=== PATIENT | male | born 1985 | race Two or more races ===

== ENCOUNTER 2023-10-08 20:47 | Inpatient (IN) | payer OTHER ==
[~2023-10-08] VITALS: Ht 177.8 cm; Wt 90.0 kg
[2023-10-08] MEDS: metroNIDAZOLE 500MG/100ML 100 ML IV ONE (01:00)
[2023-10-08 21:32] LABS: Basophils # (auto) 0.1 10 ^3/uL (0-0.2); Basophils % (auto) 0.2 % (0.0-2.0); Eosinophils # (auto) 0 10 ^3/uL (0-0.8); Eosinophils % (auto) 0.1 % (0.0-7.0); Hematocrit 50.3 % (41.0-53.0); Hemoglobin 17.6 g/dL (13.5-17.5); Lymphocytes # (auto) 1.2 10 ^3/uL (0.4-5.4); Lymphocytes % (auto) 5.4 % (10.0-50.0); Mean Corpuscular Hemoglobin 30.5 pg (28.0-32.0); Mean Corpuscular Volume 87.2 fL (80.0-100.0); Monocytes # (auto) 1.5 10 ^3/uL (0-1.3); Monocytes % (auto) 6.8 % (0.0-12.0); Neutrophils # (auto) 19.8 10 ^3/uL (1.6-8.6); Neutrophils % (auto) 87.5 % (37.0-80.0); Nucleated Red Blood Cells % 0.1 %; Red Blood Cells 5.77 10^6/uL (4.5-5.90); Red Cell Distribution Width 12.9 % (11.8-14.3); White Blood Cell 22.6 10^3/uL (4.4-10.8)
[2023-10-08 21:38] LABS: Alanine Aminotransferase 21 U/L (7-40); Albumin 5.3 g/dL (3.2-4.8); Alkaline Phosphatase 71 U/L (46-116); Anion Gap 10 (5-15); Aspartate Aminotransferase 16 U/L (13-40); BUN/Creatinine Ratio 7.6 (10.0-20.0); Bilirubin, Total 0.7 mg/dL (0.2-1.0); Blood Urea Nitrogen 8 mg/dL (9-23); Carbon Dioxide 26 mmol/L (20-30); Chloride 105 mmol/L (98-107); Glucose 116 mg/dL (74-106); Sodium 141 mmol/L (136-145); Total Protein 8.4 g/dL (5.7-8.2)
[2023-10-08 21:49] LABS: Partial Thromboplastin Time 25.9 SEC (24.5-34.5); Prothrombin Time 10.6 sec (9.3-11.8)
[2023-10-08] MEDS: SODIUM CHLORIDE 0.9% 1,000 ML IV ONE (23:45)
[2023-10-09 04:27] LABS: Lactic Acid w/Reflex 2.6 mmol/L (0.4-2.0)
[2023-10-09] MEDS ORDERED: ONDANSETRON HCL 4 MG/2 ML VIAL IV PRN (05:30)
[2023-10-09] MEDS ORDERED: HYDROcodone-ACET 5/325MG TAB PO PRN (05:30)
[2023-10-09] MEDS ORDERED: ACETAMINOPHEN 325 MG TAB PO PRN (05:30)
[2023-10-09] MEDS: cefTRIAXone 1GM/50ML D5W 50 ML IV SCH (06:05)
[2023-10-09] MEDS: SODIUM CHLORIDE 0.9% 1,000 ML IV ONE (06:06)
[2023-10-09] MEDS: metroNIDAZOLE 500MG/100ML 100 ML IV SCH (10:12)
[2023-10-09] MEDS: ALPRAZolam 0.25 MG TAB PO PRN (10:39)
[2023-10-09 11:17] VITALS: BP 141/86; PULSE 67; RESP 17; TEMP 99; O2SAT 99
[2023-10-09 12:00] VITALS: BP 141/86; PULSE 88; RESP 17; TEMP 98.9; O2SAT 98
[2023-10-09] MEDS: CIPROFLOXACIN HCL 500 MG TAB PO ONE (13:07)
[2023-10-09] MEDS ORDERED: LABETALOL HCL 5 MG/ML 4ML SYRINGE IV PRN (13:30)
[2023-10-09 19:11] VITALS: BP 139/90; PULSE 72; RESP 17; TEMP 98.7; O2SAT 98
[2023-10-09 20:00] VITALS: PULSE 61; RESP 18; O2SAT 99
[2023-10-09] MEDS: CIPROFLOXACIN HCL 500 MG TAB PO SCH (20:51)
[2023-10-09 21:14] VITALS: BP 153/102; PULSE 61; RESP 18; TEMP 97.9; O2SAT 99
[2023-10-10 01:25] VITALS: BP 123/82; PULSE 68; RESP 18; TEMP 97.9; O2SAT 97
[2023-10-10 05:13] VITALS: BP 139/89; PULSE 51; RESP 18; TEMP 98.3; O2SAT 97
[2023-10-10 06:25] LABS: Basophils # (auto) 0 10 ^3/uL (0-0.2); Basophils % (auto) 0.2 % (0.0-2.0); Eosinophils # (auto) 0.2 10 ^3/uL (0-0.8); Eosinophils % (auto) 2.1 % (0.0-7.0); Hematocrit 42.3 % (41.0-53.0); Hemoglobin 14.3 g/dL (13.5-17.5); Lymphocytes # (auto) 2.1 10 ^3/uL (0.4-5.4); Lymphocytes % (auto) 28.3 % (10.0-50.0); Mean Corpuscular Hemoglobin 29.6 pg (28.0-32.0); Mean Corpuscular Hgb Conc. 33.9 g/dL (32.0-36.0); Mean Corpuscular Volume 87.3 fL (80.0-100.0); Monocytes # (auto) 0.6 10 ^3/uL (0-1.3); Monocytes % (auto) 8.7 % (0.0-12.0); Neutrophils # (auto) 4.5 10 ^3/uL (1.6-8.6); Neutrophils % (auto) 60.7 % (37.0-80.0); Nucleated Red Blood Cells % 0.1 %; Red Blood Cells 4.84 10^6/uL (4.5-5.90); White Blood Cell 7.4 10^3/uL (4.4-10.8)
[2023-10-10 06:31] LABS: Calcium 9.4 mg/dL (8.7-10.4); Chloride 109 mmol/L (98-107); Potassium 4.2 mmol/L (3.5-5.1); Sodium 142 mmol/L (136-145)
[2023-10-10 06:32] LABS: Anion Gap 8 (5-15); Carbon Dioxide 25 mmol/L (20-30)
[2023-10-10 06:37] LABS: BUN/Creatinine Ratio 11.5 (10.0-20.0); Blood Urea Nitrogen 10 mg/dL (9-23); Glucose 96 mg/dL (74-106)
[2023-10-10 08:30] VITALS: BP 141/88; PULSE 72; RESP 20; TEMP 98.4; O2SAT 95
== END 2023-10-10 11:22 | disposition home or self-care (01) | DRG 392 ==
LOC: ER 20:47 → EDBD 20:47 → OVERFLOW 10-09 05:27 → EAST 10-09 05:27 → TELE-E-ADS 10-09 11:03 → EAST 10-09 17:19
PROVIDERS: ADMIT Internal Medicine; ATTEND Internal Medicine
DX: K52.9 Noninfective gastroenteritis and colitis, unspecified (principal); E87.20 Acidosis, unspecified; F41.9 Anxiety disorder, unspecified; F43.10 Post-traumatic stress disorder, unspecified; I10 Essential (primary) hypertension; D72.829 Elevated white blood cell count, unspecified
CPT/HCPCS: 36415; 71045; 74176; 80048; 80053; 83605; 83735; 83880; 84484; 85025; 85610; 85730; 87040; 93005; 96361; 96365; 96366; 96367; G0378; J3490